=== PATIENT | male | born 2000 | race Two or more races ===

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

== ENCOUNTER 2019-07-15 15:59 | Emergency (ER) | payer MEDICAID ==
[~2019-07-15] VITALS: Ht 188 cm; Wt 97.5 kg
[2019-07-15 17:19] VITALS: BP 119/69
== END 2019-07-15 17:22 | disposition home or self-care (01) ==
LOC: ER 16:03
DX: T78.40XA Allergy, unspecified, initial encounter (principal); Z88.1 Allergy status to other antibiotic agents; Z88.0 Allergy status to penicillin; Z91.013 Allergy to seafood

== ENCOUNTER 2021-01-13 06:59 | Emergency (ER) | payer MEDICAID ==
[~2021-01-13] VITALS: Ht 188 cm; Wt 108.9 kg
[2021-01-13 07:18] LABS: Basophils # (auto) 0 10 ^3/uL (0-0.2); Basophils % (auto) 0.2 % (0.0-2.0); Eosinophils # (auto) 0 10 ^3/uL (0-0.8); Lymphocytes # (auto) 0.9 10 ^3/uL (0.4-5.4); Mean Corpuscular Hemoglobin 27.1 pg (28.0-32.0)
[2021-01-13 07:24] LABS: Eosinophils % (auto) 0.2 % (0.0-7.0); Hematocrit 49.1 % (41.0-53.0); Hemoglobin 17.2 g/dL (13.5-17.5); Lymphocytes % (auto) 6.6 % (10.0-50.0); Mean Corpuscular Hgb Conc. 35.1 g/dL (32.0-36.0); Mean Corpuscular Volume 77.1 fL (80.0-100.0); Monocytes # (auto) 0.4 10 ^3/uL (0-1.3); Monocytes % (auto) 3.1 % (0.0-12.0); Neutrophils # (auto) 12.5 10 ^3/uL (1.6-8.6); Neutrophils % (auto) 89.9 % (37.0-80.0); Nucleated Red Blood Cells % 0.1 %; Platelet Count (auto) 305 10^3/uL (140-450); Red Blood Cells 6.36 10^6/uL (4.5-5.90); Red Cell Distribution Width 13.6 % (11.8-14.3); White Blood Cell 13.9 10^3/uL (4.4-10.8)
[2021-01-13 07:40] VITALS: BP 115/74
[2021-01-13 07:43] LABS: Potassium 3.7 mmol/L (3.5-5.1)
[2021-01-13] MEDS ORDERED: SODIUM CHLORIDE 0.9% 1,000 ML IV ONE ×2 (07:45)
[2021-01-13] MEDS ORDERED: ONDANSETRON HCL 4 MG/2 ML VIAL IV ONE (07:45)
[2021-01-13 07:52] LABS: Albumin 4.2 g/dL (3.4-5.0); Bilirubin, Total 2.4 mg/dL (0.2-1.0); Calcium 9.4 mg/dL (8.5-10.1); Total Protein 7.6 g/dL (6.4-8.2)
[2021-01-13 08:17] LABS: Urine Bacteria NONE SEEN /hpf (None Seen); Urine Blood Negative /uL (Negative); Urine Mucus FEW (None Seen); Urine WBC 1 /hpf (0 - 3)
[2021-01-13 08:32] LABS: Alcohol, Urine < 3.0 mg/dL (0-10); Amphetamine Screen, Urine NEGATIVE (NEGATIVE); Barbiturate Scree,Urine NEGATIVE (NEGATIVE); Benzodiazephine Screen, Urine NEGATIVE (NEGATIVE); Cannabinoid Screen, Urine NEGATIVE (NEGATIVE); Cocaine Screen, Urine NEGATIVE (NEGATIVE); Opiate Scree,Urine NEGATIVE (NEGATIVE); Phencyclidine Screen, Urine NEGATIVE (NEGATIVE)
[2021-01-13] MEDS ORDERED: cefTRIAXone 1GM/50ML D5W 50 ML IV ONE (09:00)
== END 2021-01-13 09:26 | disposition home or self-care (01) ==
LOC: ER 06:59
DX: R10.84 Generalized abdominal pain (principal); D72.829 Elevated white blood cell count, unspecified; R11.2 Nausea with vomiting, unspecified; I10 Essential (primary) hypertension; Z88.0 Allergy status to penicillin; Z88.1 Allergy status to other antibiotic agents
CPT/HCPCS: 36415; 74176; 80053; 80307; 81001; 82150; 83690; 85025; 96361; 96374; 96375; 99284; J0696; J2405; 96365

== ENCOUNTER 2021-10-20 11:27 | Emergency (ER) | payer MEDICAID ==
[~2021-10-20] VITALS: Ht 188 cm; Wt 108.9 kg
[2021-10-20] MEDS ORDERED: FAMOTIDINE (10MG/ML) 2ML VL IV ONE (11:45)
[2021-10-20] MEDS ORDERED: ALUM & MAG HYDROX-SIMETH LIQ(MAALOX) 30 ML PO ONE (11:45)
[2021-10-20] MEDS ORDERED: ACETAMINOPHEN 325 MG TAB PO ONE (11:45)
[2021-10-20] MEDS ORDERED: ONDANSETRON HCL 4 MG/2 ML VIAL IV ONE (11:45)
[2021-10-20] MEDS ORDERED: LACTATED RINGER'S 1,000 ML IV ONE (12:30)
[2021-10-20 12:37] LABS: Basophils # (auto) 0 10 ^3/uL (0-0.2); Basophils % (auto) 0.2 % (0.0-2.0); Eosinophils # (auto) 0 10 ^3/uL (0-0.8); Eosinophils % (auto) 0.2 % (0.0-7.0); Hemoglobin 16.6 g/dL (13.5-17.5); Lymphocytes # (auto) 0.6 10 ^3/uL (0.4-5.4); Lymphocytes % (auto) 4.6 % (10.0-50.0); Monocytes # (auto) 0.5 10 ^3/uL (0-1.3)
[2021-10-20 12:39] LABS: Hematocrit 47.5 % (41.0-53.0); Mean Corpuscular Volume 77.1 fL (80.0-100.0); Monocytes % (auto) 3.3 % (0.0-12.0); Neutrophils # (auto) 12.4 10 ^3/uL (1.6-8.6); Neutrophils % (auto) 91.7 % (37.0-80.0); Nucleated Red Blood Cells % 0.6 %; Red Blood Cells 6.16 10^6/uL (4.5-5.90); Red Cell Distribution Width 13.5 % (11.8-14.3); White Blood Cell 13.6 10^3/uL (4.4-10.8)
[2021-10-20 12:56] LABS: Albumin 4.4 g/dL (3.4-5.0); Calcium 9.7 mg/dL (8.5-10.1); Potassium 3.7 mmol/L (3.5-5.1)
[2021-10-20 13:04] LABS: BUN/Creatinine Ratio 13.8; Bilirubin, Total 2.3 mg/dL (0.2-1.0); CRP High Sensitivity 1.25 mg/dL (< 0.3); Total Protein 7.8 g/dL (6.4-8.2)
[2021-10-20 14:10] VITALS: BP 105/54
== END 2021-10-20 14:11 | disposition home or self-care (01) ==
LOC: ER 11:27
DX: K52.9 Noninfective gastroenteritis and colitis, unspecified (principal); I10 Essential (primary) hypertension; Z88.1 Allergy status to other antibiotic agents; Z88.0 Allergy status to penicillin
CPT/HCPCS: 36415; 76705; 80053; 85025; 86141; 86850; 86900; 86901; 96361; 96374; 96375; 99285; J2405; J3490; J7030

== ENCOUNTER 2022-08-13 16:46 | Emergency (ER) | payer MEDICAID, OTHER ==
[~2022-08-13] VITALS: Ht 190.5 cm; Wt 111.4 kg
[2022-08-13 17:45] VITALS: BP 127/75
[2022-08-13] MEDS ORDERED: PROM1SOL4 PO (17:54)
[2022-08-13] MEDS ORDERED: PRED20TA2 PO (17:54)
[2022-08-13] MEDS ORDERED: AZIT500T66 PO (17:54)
== END 2022-08-13 17:58 | disposition home or self-care (01) ==
LOC: ER 16:46
DX: J20.9 Acute bronchitis, unspecified (principal); J01.90 Acute sinusitis, unspecified; I10 Essential (primary) hypertension; R07.89 Other chest pain
CPT/HCPCS: 71046

== ENCOUNTER 2022-12-23 17:10 | Emergency (ER) | payer OTHER ==
[~2022-12-23] VITALS: Ht 190.5 cm; Wt 110.2 kg
[~2022-12-23 17:10] MED LIST: AZIT500T66 PO; PRED20TA2 PO; PROM1SOL4 PO
[2022-12-23 17:45] VITALS: BP 117/66
[2022-12-23 18:39] LABS: Urine Bacteria NONE SEEN /hpf (None Seen); Urine Blood Negative /uL (Negative); Urine Mucus FEW (None Seen); Urine Specific Gravity 1.027 (1.001-1.035); Urine WBC <1 /hpf (0 - 3)
== END 2022-12-23 21:46 | disposition left against medical advice (07) ==
LOC: ER 17:10
DX: M54.9 Dorsalgia, unspecified (principal); Z53.21 Procedure and treatment not carried out due to patient leaving prior to being seen by health care provider
CPT/HCPCS: 81001

== ENCOUNTER 2023-12-21 12:20 | Emergency (ER) | payer OTHER ==
[~2023-12-21] VITALS: Ht 190.5 cm; Wt 109.0 kg
[2023-12-21 13:57] LABS: Basophils # (auto) 0 10 ^3/uL (0-0.2); Eosinophils # (auto) 0.2 10 ^3/uL (0-0.8); Monocytes # (auto) 0.5 10 ^3/uL (0-1.3); Red Cell Distribution Width 13.8 % (11.8-14.3)
[2023-12-21 14:00] LABS: Basophils % (auto) 0.5 % (0.0-2.0); Eosinophils % (auto) 2.9 % (0.0-7.0); Hematocrit 44.9 % (41.0-53.0); Hemoglobin 15.6 g/dL (13.5-17.5); Lymphocytes % (auto) 30.2 % (10.0-50.0); Mean Corpuscular Hgb Conc. 34.6 g/dL (32.0-36.0); Mean Corpuscular Volume 77.9 fL (80.0-100.0); Monocytes % (auto) 7.5 % (0.0-12.0); Neutrophils # (auto) 3.9 10 ^3/uL (1.6-8.6); Neutrophils % (auto) 58.9 % (37.0-80.0); Nucleated Red Blood Cells % 0.3 %; Red Blood Cells 5.77 10^6/uL (4.5-5.90); White Blood Cell 6.7 10^3/uL (4.4-10.8)
[2023-12-21] MEDS: ASPirin 81 mg TAB PO ONE (14:00)
[2023-12-21] MEDS: SODIUM CHLORIDE 0.9% 1,000 ML IV ONE (14:00)
[2023-12-21 14:37] LABS: Alanine Aminotransferase 37 U/L (7-40); Albumin 4.6 g/dL (3.2-4.8); Alkaline Phosphatase 75 U/L (46-116); Anion Gap 5 (5-15); Aspartate Aminotransferase 23 U/L (13-40); BUN/Creatinine Ratio 11.8 (10.0-20.0); Bilirubin, Total 1.3 mg/dL (0.2-1.0); Blood Urea Nitrogen 13 mg/dL (9-23); Calcium 10.1 mg/dL (8.5-10.1); Carbon Dioxide 32 mmol/L (20-30); Chloride 108 mmol/L (98-107); Glucose 80 mg/dL (74-106); Potassium 4.1 mmol/L (3.5-5.1); Sodium 145 mmol/L (136-145); Total Protein 6.8 g/dL (5.7-8.2)
[2023-12-21] MEDS ORDERED: METO-281 PO (16:56)
[2023-12-21] MEDS ORDERED: OMEP20TA PO (16:56)
[2023-12-21 18:00] VITALS: BP 118/57; PULSE 73; RESP 14; TEMP 98.6; O2SAT 98
== END 2023-12-21 19:02 | disposition home or self-care (01) ==
LOC: ER 12:20
DX: R07.89 Other chest pain (principal); K22.4 Dyskinesia of esophagus; Z79.899 Other long term (current) drug therapy; Z79.2 Long term (current) use of antibiotics; Z88.0 Allergy status to penicillin; Z88.1 Allergy status to other antibiotic agents
CPT/HCPCS: 36415; 71046; 80053; 83735; 84484; 85025; 85379; 93005; 96360; 96361; 99285; J7030